=== PATIENT | male | born 1975 | race African-American/Black ===

== ENCOUNTER 2016-12-06 14:36 | Emergency (ER) | payer MEDICAID ==
[~2016-12-06] VITALS: Ht 177.8 cm; Wt 83.9 kg
[2016-12-06] MEDS ORDERED: AMLO10TA2 PO (14:45)
--- NOTE | 2016-12-06 14:50 | NUR ---
DR HUANG AT THE BEDSIDE FOR EVAL AND EXAM.
[2016-12-06 16:00] LABS: BASOPHILS # (AUTO) 0.1 K/uL (0.0-8.0); BASOPHILS % (AUTO) 0.7 % (0.0-2.0); EOSINOPHILS % (AUTO) 0.1 % (0.0-7.0); HEMOGLOBIN 15.1 G/DL (14.0-18.0); LYMPHOCYTES # (AUTO) 0.8 K/UL (0.8-4.8); LYMPHOCYTES % (AUTO) 5.8 % (20.5-51.5); MEAN CORPUSCULAR HEMOGLOBIN 27.1 UUG (27.0-31.0); MEAN CORPUSCULAR HGB CONC 34 g/dL (32.0-37.0); MEAN CORPUSCULAR VOLUME 80.9 FL (82.0-92.0); MONOCYTES # (AUTO) 0.3 K/UL (0.1-1.30); MONOCYTES % (AUTO) 2.5 % (0.0-11.0); NEUTROPHILS # (AUTO) 12.8 K/UL (1.8-8.9); NEUTROPHILS % (AUTO) 90.9 % (38.5-71.5); PLATELET COUNT (AUTO) 209 K/UL (150-450); RED BLOOD CELL COUNT(AUTO) 5.56 MIL/UL (4.7-6.1)
[2016-12-06 16:08] LABS: CREATININE 0.9 mg/dL (0.6-1.3); POTASSIUM 3.7 mmol/L (3.5-5.1)
[2016-12-06 16:13] LABS: BILIRUBIN,DIRECT 0.2 mg/dL (0.0-0.2); BILIRUBIN,TOTAL 0.5 mg/dL (0.2-1.0)
[2016-12-06 16:31] LABS: LYMPHOCYTES % (MANUAL) 7 % (20-40); MONOCYTES % (MANUAL) 2 % (2-10); NEUTROPHILS % (MANUAL) 91 % (42-75)
--- NOTE | 2016-12-06 16:47 | NUR ---
Patient is resting comfortably in bed with eyes closed, NAD NOTED.
[2016-12-06 18:37] VITALS: BP 151/89
--- NOTE | 2016-12-06 18:37 | NUR ---
IV removed. Catheter intact and site benign. Pressure and 4x4 gauze applied to site. No bleeding noted.
--- NOTE | 2016-12-06 18:38 | NUR ---
Patient discharged to home in stable conditon. Written and verbal after care instructions given. Patient verbalizes understanding of instructions.
== END 2016-12-06 18:39 | disposition home or self-care (01) ==
LOC: ER 14:38
DX: I67.4 Hypertensive encephalopathy (principal); I10 Essential (primary) hypertension
CPT/HCPCS: 36415; 70450; 71010; 80048; 80076; 84484; 85025; 85730; 93005; 96374; 96375; 96376; 99285; A4663; J1170; J2405 ×2; J3490; 70030-TC

== ENCOUNTER 2017-11-11 16:28 | Emergency (ER) | payer MEDICAID, OTHER ==
[~2017-11-11] VITALS: Ht 177.8 cm; Wt 86.2 kg
[~2017-11-11 16:28] MED LIST: AMLO10TA2 PO
[2017-11-11 17:12] LABS: *BILIRUBIN,URIN NEGATIVE (NEGATIVE); *BLOOD, URINE Trace-intact (NEGATIVE); *CLARITY,URINE SLIGHTLY CLOUDY (CLEAR); *COLOR,URINE YELLOW (YELLOW); *KETONES,URINE NEGATIVE (NEGATIVE); *PROTEIN,URINE 1+ (NEGATIVE); *UROBILINOGEN,URINE 0.2 E.U./dl (NORMAL); LEUKOCYTE ESTERASE ,URINE NEGATIVE (NEGATIVE); NITRITE, URINE NEGATIVE (NEGATIVE); PH,URINE 6.5 (5.0-8.0); UGLUCOSE NEGATIVE (NEGATIVE)
[2017-11-11 17:16] LABS: BACTERIA,URINE NONE SEEN /HPF (NONE SEEN); SQUAMOUS EPITHELIAL CELL,UR NONE SEEN /HPF (NONE SEEN); WBC,URINE 0-3 /HPF (0-3)
[2017-11-11] MEDS ORDERED: IV NORMAL SALINE 1000 ML BAG IV ONE (17:30)
[2017-11-11] MEDS ORDERED: ACETAMINOPHEN ES 500 MG TABLET PO ONE (17:30)
[2017-11-11] MEDS ORDERED: ACETAMINOPHEN ES 500 MG TABLET ONE (17:35)
[2017-11-11 17:36] LABS: BASOPHILS % (AUTO) 0.3 % (0.0-2.0); EOSINOPHILS # (AUTO) 0.2 K/uL (0.0-0.7); EOSINOPHILS % (AUTO) 1.7 % (0.0-7.0); HEMATOCRIT 37.8 % (36.7-47.1); HEMOGLOBIN 12.6 g/dL (12.5-16.3); LYMPHOCYTES # (AUTO) 2.3 K/uL (20.0-40.0); LYMPHOCYTES % (AUTO) 23.7 % (20.5-51.5); MEAN CORPUSCULAR HEMOGLOBIN 28.1 uug (23.8-33.4); MEAN CORPUSCULAR HGB CONC 33 g/dL (32.5-36.3); MEAN CORPUSCULAR VOLUME 84.2 fL (73.0-96.2); MONOCYTES # (AUTO) 0.6 K/uL (2.0-10.0); MONOCYTES % (AUTO) 6.5 % (0.0-11.0); NEUTROPHILS # (AUTO) 6.5 K/uL (1.8-8.9); NEUTROPHILS % (AUTO) 67.8 % (38.5-71.5); PLATELET COUNT (AUTO) 192 K/uL (152-348); RED BLOOD CELL COUNT(AUTO) 4.48 MIL/uL (4.06-5.63); WHITE BLOOD COUNT (AUTO) 9.6 K/uL (3.6-10.2)
[2017-11-11 17:44] LABS: BILIRUBIN,DIRECT 0.1 mg/dL (0.0-0.2); BILIRUBIN,TOTAL 0.4 mg/dL (0.2-1.0); CREATININE 1.1 mg/dL (0.6-1.3); POTASSIUM 3.8 mmol/L (3.5-5.1); TOTAL PROTEIN, SERUM 7.1 g/dL (6.4-8.2)
[2017-11-11] MEDS ORDERED: IV NORMAL SALINE 250 ML IV ONE (18:02)
[2017-11-11] MEDS ORDERED: IOHEXOL 350 100 ML INFUS..BTL ONE (18:02)
[2017-11-11] MEDS ORDERED: SWABABLE VALVE TRANSFER SET EA MC ONE (18:02)
[2017-11-11] MEDS ORDERED: NORMAL SALINE FLUSH 10 ML DISP.SYRIN ONE (18:02)
--- NOTE | 2017-11-11 18:05 | NUR ---
IV PLACERD, TYLENOL PO ADMIN EARLIER, 1L 0.9NS INFUSED, PT SIGNED CTA CONSENT, PT TO CT SCAN.
--- NOTE | 2017-11-11 19:05 | NUR ---
SBAR REPORT TO JOSE FRANCISCO RN, PT RESTING.
--- NOTE | 2017-11-11 19:21 | NUR ---
MSE COMPLETED, PT D/C'D HOME, ACI/RX X1 GIVEN. PT HAD IV D/C'D INTACT, PT GOT DRESSED AND AMBULATED W/O DIFF/TOOK ALL BELONGINGS.
[2017-11-11 19:23] VITALS: BP 122/58
== END 2017-11-11 19:23 | disposition home or self-care (01) ==
LOC: ER 16:29
DX: R10.9 Unspecified abdominal pain (principal); I10 Essential (primary) hypertension
CPT/HCPCS: 36415; 72191; 74175; 80048; 80076; 81001; 85025; 85730; 99285; A4663; A9150; J3490; J7030; J7050; Q9967

== ENCOUNTER 2018-11-13 16:56 | Emergency (ER) | payer OTHER ==
[~2018-11-13] VITALS: Ht 177.8 cm; Wt 86.2 kg
[~2018-11-13 16:56] MED LIST changes: -AMLO10TA2 PO; +AMLO10TA7 PO
[2018-11-13] MEDS ORDERED: LOSA50TA39 PO (17:12)
--- NOTE | 2018-11-13 17:22 | NUR ---
ENRIKE DOUGLAS AT BEDSIDE FOR MSE.
[2018-11-13] MEDS ORDERED: KETOROLAC TROMETHAMINE 60 MG INJ IM ONE ×2 (17:30→17:33)
--- NOTE | 2018-11-13 17:33 | NUR ---
Patient discharged to home in stable conditon. Written and verbal after care instructions given. Patient verbalizes understanding of instructions. ALL BELONGINGS W/ PT. PT SELF-AMBULATED W/O DIFFICULTY.
[2018-11-13 17:34] VITALS: BP 141/90
== END 2018-11-13 17:35 | disposition home or self-care (01) ==
LOC: ER 16:56
DX: M54.41 Lumbago with sciatica, right side (principal); I10 Essential (primary) hypertension; Z79.899 Other long term (current) drug therapy; Y93.89 Activity, other specified; Y92.89 Other specified places as the place of occurrence of the external cause; Y99.8 Other external cause status
CPT/HCPCS: 96372; 99283; J1885; A4663